=== PATIENT | male | born 1960 | race Caucasian/White ===

== ENCOUNTER 2020-04-01 07:34 | Emergency (ER) | payer OTHER ==
[2020-04-01 07:42] VITALS: BP 145/67; PULSE 97; TEMP 98.9; BMI 24.2
[2020-04-01] MEDS ORDERED: FOLIC ACID INJECTION - 1 MG, THIAMINE HCL 100 MG, MULTIVIT INJECTION ADULT 10 ML in SOD... IVPB ONE (08:42)
[2020-04-01] MEDS ORDERED: PANTOPRAZOLE SODIUM 40 MG VIAL IVPUSH ONE (08:42)
[2020-04-01] MEDS ORDERED: PANTOPRAZOLE SODIUM 40 MG VIAL ONE (09:11)
[2020-04-01 09:54] LABS: BASO % 0.8 % (0-2.0); EOS % 0.8 % (0-4.5); HEMATOCRIT 51.4 % (35.4-49); HEMOGLOBIN 17.3 GM/dL (11.7-16.9); LYMPH % 27.2 % (8-40); MCH 34.2 pg (25.7-33.7); MCHC 33.8 g/dl (32.0-35.9); MEAN CELL VOLUME 101.4 fl (80-96); MEAN PLT VOLUME 8.4 fl (7.5-11.1); MONO % 6.1 % (3.8-10.2); NEUT % 65.1 % (42.8-82.8); PLATELET COUNT 176 K/MM3 (134-434); RBC 5.07 M/mm3 (4.00-5.60); RDW 14.2 % (11.9-15.9); WHITE BLOOD COUNT 4.8 K/mm3 (4.0-10.0)
[2020-04-01 10:16] LABS: POTASSIUM 3.9 mmol/L (3.5-5.1)
[2020-04-01 10:21] LABS: ALBUMIN 4.2 g/dl (3.4-5.0); BLOOD UREA NITROGEN 14.8 mg/dL (7-18); CALCIUM 8.2 mg/dL (8.5-10.1)
[2020-04-01 10:22] LABS: MAGNESIUM 2.4 mg/dL (1.8-2.4)
[2020-04-01 10:24] LABS: CREATININE 0.6 mg/dL (0.55-1.3)
[2020-04-01 10:25] LABS: BILIRUBIN,TOTAL 0.5 mg/dL (0.2-1)
[2020-04-01] MEDS ORDERED: ACETAMINOPHEN 500 MG TABLET (FP) PO ONE (11:28)
[2020-04-01] MEDS ORDERED: ACETAMINOPHEN 325 MG TABLET (FP) ONE (11:28)
[2020-04-01 11:45] LABS: EPI CELLS 4 /uL (0-25.1); HYALINE CASTS 1 /uL (0-3.1); PH,URINE 5.5 (5.0-8.0); URINE APPEARANCE CLEAR; URINE BACTERIA 22 /uL (0-1359); URINE BILIRUBIN NEGATIVE (NEGATIVE); URINE COLOR YELLOW; URINE GLUCOSE (UA) NEGATIVE (NEGATIVE); URINE KETONE 1+ (NEGATIVE); URINE LEUK ESTERASE NEGATIVE (NEGATIVE); URINE NITRITE NEGATIVE (NEGATIVE); URINE PROTEIN 1+ (NEGATIVE); URINE RBC 7 /uL (0-23.9); URINE WBC 3 /uL (0-25.8)
[2020-04-01 11:46] LABS: COCAINE, UR NEGATIVE ng/ml (CUTOFF=300); OPIATES, URI NEGATIVE ng/ml (CUTOFF=300)
[2020-04-01 11:47] LABS: PHENCYCLIDINE,URINE NEGATIVE ng/ml (CUTOFF=25)
[2020-04-01 11:50] LABS: METHADONE, UR NEGATIVE ng/ml (CUTOFF=300); URINE AMPHETAMINES NEGATIVE ng/ml (CUTOFF=500); URINE BARBITURATES NEGATIVE ng/ml (CUTOFF=200)
[2020-04-01 11:51] LABS: URINE BENZODIAZEPINES POSITIVE ng/ml (CUTOFF=200)
== END 2020-04-01 14:00 | disposition home or self-care (01) ==
LOC: JER 07:34
PROC: 3E033NZ Introduction of Analgesics, Hypnotics, Sedatives into Peripheral Vein, Percutaneous Approach (ICD-10-PCS; principal; 2020-04-01)
DX: F10.10 Alcohol abuse, uncomplicated (principal)
CPT/HCPCS: 36415; 80053; 80307; 81003; 83690; 83735; 85025; 87086; 93005; 93010; 99285-25